=== PATIENT | male | born 2000 | race African-American/Black ===

== ENCOUNTER 2022-09-04 13:24 | Emergency (ER) | payer OTHER ==
[2022-09-04 14:04] VITALS: BP 113/57; PULSE 74; RESP 16; TEMP 98; BMI 23.7
[2022-09-04] MEDS ORDERED: DEXAMETHASONE SOD PHOSPHATE 10 MG/1 ML VIAL IM ONE (14:34)
[2022-09-04] MEDS ORDERED: ACETAMINOPHEN 325 MG TABLET (FP) PO ONE (14:35)
[2022-09-04] MEDS ORDERED: KETOROLAC TROMETHAMINE 15 MG/ML VIAL IM ONE (14:35)
[2022-09-04] MEDS ORDERED: DEXAMETHASONE SOD PHOSPHATE 10 MG/1 ML VIAL ONE (14:51)
[2022-09-04] MEDS ORDERED: KETOROLAC TROMETHAMINE 15 MG/ML VIAL ONE (14:51)
[2022-09-04] MEDS ORDERED: ACETAMINOPHEN 325 MG TABLET (FP) ONE (14:51)
== END 2022-09-04 15:00 | disposition home or self-care (01) ==
LOC: JERFT 13:24 → JER 13:24 → JERFT 15:00
PROC: 3E023GC Introduction of Other Therapeutic Substance into Muscle, Percutaneous Approach (ICD-10-PCS; principal; 2022-09-04)
DX: K12.2 Cellulitis and abscess of mouth (principal)
CPT/HCPCS: 0241U-QW; 36415; 86308; 87070; 87651; 99284-25; J1100